=== PATIENT | female | born 1950 | race Caucasian/White ===

== ENCOUNTER → 2017-01-21 | Outpatient (CLI) | payer MEDICARE, OTHER ==
[~2017-01-21] MED LIST: ALBUTEROL17 GM INH; AMOXICILLIN875 MG PO; AUGMENTIN875 M1 PO; DOC-Q-LACE100 MG PO; DULCOLAX10 MG/SUPP RC; GUAIFENESIN200 M1 PO; HYDROCODON-ACE1 EAC7 PO; HYDROCORTISONE30 G4 RC; LEVAQUIN750 M1 PO; LORTAB 5/500 TA1 TA1 PO; MELOXICAM15 MG PO; METAMUCIL SMOOT1 PKT PO; MILK OF MAGNESIA PO; MIRALAX17 GM PO; MOBIC PO; NAPROXEN PO; NO MEDICATIONS; PREDNISONE PO; PROAIR HFA8.5 GM IH; SITZ BATH; SKELAXIN PO; SYMBICORT INH; TUCKS MEDICATE1 EACH TP; TUSSIONEX PENN473 ML PO; VICODIN 5/1 TAB 5/50 PO
--- NOTE | ~2017-01-21 | CT57 ---
[facility] A Service of [facility] RADIOLOGY TEXT RESULTS PATIENT: NATALIE JEAN BAPTISTE LOCATION: [facility] : 48 UNIT #: [id number] AGE: [address]: Krupa Monique APRN SEX: F ORDER DR: [id number] [address] [address] [id number] MR#: [id number] Acc #: [id number] NAME: NATALIE JEAN BAPTISTE : 1950 SEX: F STUDY DATE/TIME: 01/21/2017 13:09 UNIT: [facility] ROOM: STUDY DESCRIPTION: CT Chest Wo Cont Attending Physician: Krupa Monique A.P.R.N. Referring Physician: Krupa Monique A.P.R.N. Ordering Physician: Krupa Monique A.P.R.N. Primary Care Physician: Sanjana Ortiz M.D. MEDICAL IMAGING REPORT This report is preliminary unless electronic signature is present. EXAM Chest CT no contrast, 01/21/2017 INDICATION Lung nodule on recent chest x-ray. Left-sided nodule. Bronchitis and shortness of air. Bronchitis diagnosed last Friday. TECHNIQUE Noncontrast CT of the chest was performed. Correlation is made with chest x-ray 01/16/2017. This CT exam was performed with one or more of the following radiation dose reduction techniques: automatic exposure control, adjustment of mA and/or kV according to patient size, and iterative reconstruction. FINDINGS There is no left-sided lung nodule identified. The finding on recent chest x-ray may correspond to an area of curvilinear atelectasis/scar within the lingula. There is no pleural effusion. Intimately associated with the major fissure on the right is an area of pleural thickening and subpleural nodularity that measures up to about 8 mm maximum diameter on the coronal reformats. This is nonspecific and may represent an area of rounded atelectasis or subsegmental scarring. When compared to a CT angiogram of the chest performed the configuration is stable to less conspicuous and therefore benign based upon long-term stability. There is no suspicious pulmonary nodule elsewhere in either lung or evidence of pneumonia. Included thyroid is unremarkable. No pericardial effusion or axillary adenopathy. No mediastinal adenopathy. Aorta demonstrates no aneurysm. Included upper abdomen demonstrate surgical absence of the gallbladder. [facility]. [facility] A Service of [facility] RADIOLOGY TEXT RESULTS PATIENT: NATALIE JEAN BAPTISTE LOCATION: [facility] : 48 UNIT #: [id number] AGE: [address]: Krupa Monique [employer] SEX: F ORDER DR: Both kidneys are mildly atrophic. There is a cyst in the right hepatic lobe measuring a centimeter, also unchanged from the 2012 study. Osseous structures demonstrate no suspicious bone lesion. Schmorl node deformity in the thoracolumbar junction region is new compared to the prior 2012 study but otherwise age indeterminate. No compression fracture or malalignment. IMPRESSION 1. No suspicious lung nodule identified. The area of concern on the recent chest x-ray may correspond to an area of curvilinear atelectasis or scarring within the lingula. 2. Stable to interval decrease in conspicuity of pleural thickening and nodularity associated with the major fissure on the right extending into the right upper lobe. This is unchanged from 2012 to less conspicuous than on the prior study and therefore benign based on long-term stability. 3. Incidental benign cyst within the liver, also unchanged from 2012. Dictated by... Mike Robledo M.D. THIS IS AN ELECTRONICALLY VERIFIED REPORT Mike Robledo M.D. at 01/22/2017 9:16 AM ONESIMO/alia TD: 01/21/2017 20:41 JOB #: [id number] MEDICAL IMAGING REPORT Page 1 of 1
== END | disposition home or self-care (01) ==
LOC: SCT 12:50
DX: R91.1 Solitary pulmonary nodule (principal); R91.8 Other nonspecific abnormal finding of lung field
CPT/HCPCS: 71250